=== PATIENT | female | born 1990 | race Caucasian/White ===

== ENCOUNTER 2022-09-30 12:27 | Emergency (ER) | payer MEDICAID ==
[~2022-09-30] VITALS: Ht 167.6 cm; Wt 83.0 kg
[2022-09-30 12:36] VITALS: BP 125/73
--- NOTE | 2022-09-30 13:07 | NUR ---
PT LEFT WITHOUT D.C PAPERS. RX OF AMOXICLLIN AND IBUPROFEN SENT TO [facility].
[2022-09-30] MEDS ORDERED: AMOX500C25 PO (13:36)
[2022-09-30] MEDS ORDERED: IBUP-2213 PO (13:36)
== END 2022-09-30 13:07 | disposition home or self-care (01) ==
LOC: MED 12:27
DX: K08.89 Other specified disorders of teeth and supporting structures (principal); Z79.899 Other long term (current) drug therapy
CPT/HCPCS: 99283